=== PATIENT | female | born 1990 | race African-American/Black ===

== ENCOUNTER 2024-06-09 16:14 | Emergency (ER) | payer OTHER, SELFPAY ==
[2024-06-09 16:23] VITALS: BP 131/85; PULSE 72; RESP 14; TEMP 36.8; O2SAT 100; BMI 23.7
--- NOTE | 2024-06-09 17:19 | ED_ITS ---
HPI - Allergic Reaction General Chief complaint: Allergic Reaction Stated complaint: allergic reaction Time Seen by Provider: 06/09/24 17:14 Source: patient Mode of arrival: ambulatory Limitations: no limitations History of Present Illness ED Provider: benedict HPI narrative: Patient's allergic to peanuts somebody was eating peanuts patient was next to the person started having shortness a breath and itching all over the body took Benadryl and then took EpiPen now she feels back to normal Related Data Previous Rx's ?Medication ?Instructions ?Recorded epinephrine 0.3 mg/0.3 mL 0.3 mg (0.3 mL) IM Q10M PRN 06/09/24 injection, auto-injector (EpiPen anaphylaxis #2 ea 2-Neville) Allergies Allergy/AdvReac Type Severity Reaction Status Date / Time Iodinated Contrast Media Allergy Unknown Verified 06/09/24 16:24 [Contrast Dye] peanut Allergy Anaphylaxis Verified 06/09/24 16:24 rizatriptan [From Maxalt] Allergy Unknown Verified 06/09/24 16:24 Review of Systems Review of Systems: Yes all other systems are reviewed and are negative [facility] Social History Social History Advance Directives: No Advance Directives Information Provided: No Do you have a plan to hurt others: No Plan Physical Exam ED Vital Signs: Vital Signs - 24 hr 06/09/24 16:23 Temperature 98.3 F Pulse Rate 72 Respiratory Rate 14 Blood Pressure 131/85 Pulse Oximetry 100 Oxygen Delivery Method Room Air BMI result Body Mass Index 23.7 Appearance: Alert. Oriented X3. No acute distress. Eyes: PERRLA, No Nystagmus ENT: Pharynx normal. Oral Mucosa moist Neck: Normal inspection. Neck supple. CVS: Normal heart rate and rhythm. Pulses normal. Respiratory: No respiratory distress. Equal air entry bilateral, no wheezing/rales/rhonchi Abdomen: Soft and nontender. Bowel sounds are present, no mass palpable, no CVA tenderness Skin: Skin warm and dry. Normal skin color. Normal skin turgor. Extremities: No lower extremity edema. No calf tenderness Neuro: Oriented X 3. No motor deficit. No sensory deficit.No cerebellar signs , cranial nerves II-XII intact Medical Decision Making Medical Decision Making MDM Narrative: Patient is back to normal after EpiPen 10 mg of Decadron was given po in the ER prescribed EpiPen Discharge Plan Discharge Clinical Impression: Anaphylaxis Patient Disposition: Home, Self-Care Instructions: Peanut Allergy (ED) Additional Instructions: Care and cautions as advised Use EpiPen as advised Prescriptions: New epinephrine [EpiPen 2-Neville] 0.3 mg/0.3 mL auto-injector 0.3 mg IM Q10M PRN (Reason: anaphylaxis) Qty: 2 0RF Rx Instructions: for 2 doses Print Language: Kittitian
[2024-06-09] MEDS: dexAMETHasone 2 MG TABLET 10 MG PO (17:59)
[2024-06-09 18:18] VITALS: BP 131/85; PULSE 72; RESP 14; TEMP 36.8; O2SAT 100
== END 2024-06-09 18:18 | disposition home or self-care (01) ==
PROVIDERS: Emergency Provider Internal Medicine
DX: T78.01XA Anaphylactic reaction due to peanuts, initial encounter (principal); Y99.9 Unspecified external cause status
CPT/HCPCS: 99283; 99284; J8540

== ENCOUNTER 2024-08-15 02:30 | Emergency (ER) | payer OTHER, SELFPAY ==
--- NOTE | ~2024-08-15 | CT_ITS ---
CLINICAL HISTORY: trauma, head inj, LOC, headache CT head without contrast Comparison: None Findings: No intra-axial mass, midline shift, hydrocephalus, or acute hemorrhage. No significant atrophy-like change or white matter disease. The visualized paranasal sinuses and mastoid air cells are normal. The orbits are within normal limits. No skull fracture. IMPRESSION: 1. No acute intracranial findings. This document has been electronically signed by: Lili Wang MD on 08/15/2024 05:15:50
[2024-08-15 02:39] VITALS: BP 110/74; BP 117/67; PULSE 72; PULSE 83; RESP 12; TEMP 36.8; O2SAT 96; O2SAT 97; BMI 23.2
--- NOTE | 2024-08-15 02:41 | ECG_ITS ---
Test Reason : SYNCOPE Blood Pressure : */* mmHG Vent. Rate : 64 BPM Atrial Rate : 64 BPM P-R Int : 168 ms QRS Dur : 70 ms QT Int : 406 ms P-R-T Axes : 56 78 33 degrees QTcB Int : 418 ms Normal sinus rhythm Nonspecific T wave abnormality Abnormal ECG No previous ECGs available Referred By: Generic ED Physician Electronically Signed By: LOVE PÉREZ
[2024-08-15 03:03] LABS: MANUAL DIFF FLAG NO
[2024-08-15 03:04] LABS: Basophils Absolute Auto 0.1 X10*3/uL (0.0-0.2); Basophils Percent Auto 1.2 % (0-2); Eosinophils Absolute Auto 0.2 X10*3/uL (0.0-0.4); Eosinophils Percent Auto 3.6 % (0-4); Hematocrit 36.2 % (37.0-47.0); Hemoglobin 11.9 g/dl (12.0-16.0); Imm Gran Abs Auto 0.01 X10*3/uL (0.00-0.03); Imm Gran Pct Auto 0.2 % (0.0-0.4); Lymphocytes Percent Auto 51.4 % (20-40); Mean Corpuscular HGB Conc 32.9 g/dl (31.0-35.0); Mean Corpuscular Hemoglobin 28.1 pg (27.0-33.0); Mean Corpuscular Volume 85.6 fL (80.0-98.0); Mean Platelet Volume 10.7 fL (9.4-12.3); Monocytes Absolute Auto 0.5 X10*3/uL (0.1-1.2); Monocytes Percent Auto 8.3 % (2-11); Neutrophils Percent Auto 35.3 % (45-73); Platelet Count 222 X10*3/uL (160-400); Red Blood Count 4.23 X10*6/uL (4.20-5.50); Red Cell Distribution Width 13.2 % (11.0-16.0); White Blood Count 5.8 X10*3/uL (4.8-10.8)
[2024-08-15 03:24] LABS: Alanine Aminotransferase 16 U/L (0-31); Albumin Level 4.2 g/dL (3.5-5.0); Anion Gap 9 (12-20); Aspartate Amino Transferase 19 U/L (5-31); Bilirubin Total 0.3 mg/dL (0.0-1.0); Blood Urea Nitrogen 8 mg/dL (9-16); Calcium 9.3 mg/dL (8.4-10.2); Carbon Dioxide 26 mmol/L (22-29); Chloride 110 mmol/L (96-108); Creatinine Clr Calc Pharmacy 102.9; Estimated Glomerular Filt Rate > 60; Glucose Random 75 mg/dL (60-115); Potassium 3.4 mmol/L (3.3-5.1); Sodium 142 mmol/L (135-145); Total Protein 7.2 g/dL (6.5-8.0)
[2024-08-15 03:27] VITALS: O2SAT 97
[2024-08-15 03:44] LABS: Influenza A PCR NEGATIVE (Negative); Influenza B PCR NEGATIVE (Negative); Resp Syncy Virus RNA Qual PCR NEGATIVE (Negative); SARS COV2 PCR INHOUSE NEGATIVE (Negative)
--- NOTE | 2024-08-15 03:45 | ED.GENADULT ---
HPI - General Adult General Chief complaint: Syncope Stated complaint: found unresponsive by family, unkn cause, KEENAN 03/27 Time Seen by Provider: 08/15/24 03:45 History of Present Illness ED Provider: Neel LARA narrative: The patient is a 34-year-old woman who was at home with her mother jannet. She had eaten some foods and she had smoked some marijuana and watched a movie with her mother. After the movie the mother went to bed. The patient went to the kitchen. The patient remembers going to the refrigerator to open the door. She does not remember what happened after that. The mother states that she heard a loud bang consistent with a person having fallen. She went to the kitchen and saw the patient on the floor lying supine. The mother believes that the patient passed out and fell backwards and struck the floor making a loud noise. The mother says that it took awhile for the patient to come to. The mother called an ambulance and the patient was brought to the hospital. The patient is complaining of a headache. No neck pain. No numbness or tingling, weakness or burning in her extremities. Related Data Previous Rx's ?Medication ?Instructions ?Recorded epinephrine 0.3 mg/0.3 mL 0.3 mg (0.3 mL) IM Q10M PRN 06/09/24 injection, auto-injector (EpiPen anaphylaxis #2 ea 2-Neville) ibuprofen 400 mg tablet 400 mg PO Q6H PRN pain #14 tabs 08/15/24 Allergies Allergy/AdvReac Type Severity Reaction Status Date / Time Iodinated Contrast Media Allergy Unknown Verified 08/15/24 02:41 [Contrast Dye] peanut Allergy Anaphylaxis Verified 08/15/24 02:41 rizatriptan [From Maxalt] Allergy Unknown Verified 08/15/24 02:41 Review of Systems Review of Systems: Yes all other systems are reviewed and are negative [facility] Social History Social History Use of substances other than those prescribed or required for medical reasons: Yes Substance Use Type: Marijuana Advance Directives: No Advance Directives Information Provided: Yes Do you have a plan to hurt others: No Plan Patient : No Physical Exam ED Vital Signs: Vital Signs - 24 hr 08/15/24 02:39 08/15/24 03:27 08/15/24 05:19 Temperature 98.3 F Pulse Rate 72 59 Respiratory Rate 12 20 Blood Pressure 117/67 Pulse Oximetry 97 97 Oxygen Delivery Method Room Air Room Air BMI result Body Mass Index 23.2 Const Other: The patient is awake and alert. Mental status is normal. She looks somewhat fatigued but not in distress. HENMT Other: Some tenderness to the occipital scalp. Face is symmetrical. No raccoon eyes. No manriquez sign. Mucous membranes are moist. Eyes General: appearance normal, both eyes and all related structures Alignment and Position: alignment normal Conjunctivae: conjunctivae normal Pupils: Equal, round and reactive pupils present EOM: EOMs intact bilaterally Neck Other: No posterior midline C-spine tenderness. Good range of motion of the neck without pain. C-spine is clinically clear. Neck is otherwise unremarkable. Resp Effort & Inspection: normal respiratory effort Auscultation: clear to auscultation bilaterally Cardio Rate: regular rate Rhythm: regular rhythm Heart sounds: S1 normal heart sound present and S2 normal heart sound present GI Other: Abdomen is soft and nontender. Skin Other: Skin is dry and unremarkable Neuro Other: the patient is awake and alert with a normal mental status. Cranial nerves are intact. She moves her extremities with normal strength and sensation. She seems neurologically intact. Cranial nerves: Yes Equal, round and reactive pupils present Extrem Other: No injuries to the extremities. No peripheral edema. No calf swelling or tenderness. Medications Administered Discontinued Medications Generic Name Dose Route Start Last Admin Trade Name Freq PRN Reason Stop Dose Admin Sodium Chloride 1,000 mls @ 999 mls/hr 08/15/24 04:00 08/15/24 06:29 Ns IV 08/15/24 05:00 Infused .Q1H1M JOSE Infusion Acetaminophen 1,000 mg in 100 mls @ 400 mls/hr 08/15/24 04:42 08/15/24 05:04 Ofirmev IV 08/15/24 04:56 Infused ONCE ONE Infusion Ketorolac Tromethamine 10 mg 08/15/24 05:18 08/15/24 05:36 Ketorolac Tromethamine 15 Mg/Ml Vial IVPUSH 08/15/24 05:19 10 mg ONCE ONE Administration Medical Decision Making Medical Decision Making MDM Narrative: The patient is a 34-year-old female who was brought to the hospital after experiencing what sounds like a syncopal episode after using marijuana. She seems to have fallen backwards and struck her head. Her mother heard the fall. The fall was otherwise unwitnessed. The mother describes the patient has been difficult to arouse initially after the fall. Here in the emergency room the patient is complaining of a headache. Her C-spine seems clinically clear. Head CT is negative. EKG unremarkable. Other labs unremarkable. I suspect that the patient likely had a syncopal episode related to marijuana use. She does not seem to have sustained any significant injuries. I doubt there is any other more ominous explanation for her syncope. Labs are unremarkable. She is not . The patient was observed. She looks well. I think she may be discharged. Lab Data 08/15/24 02:54 08/15/24 02:54 Labs: Lab Results 08/15/24 08/15/24 Range/Units 02:54 03:02 WBC 5.8 (4.8-10.8) X10*3/uL RBC 4.23 (4.20-5.50) X10*6/uL Hgb 11.9 L (12.0-16.0) g/dl Hct 36.2 L (37.0-47.0) % MCV 85.6 (80.0-98.0) fL MCH 28.1 (27.0-33.0) pg MCHC 32.9 (31.0-35.0) g/dl RDW 13.2 (11.0-16.0) % Plt Count 222 (160-400) X10*3/uL MPV 10.7 (9.4-12.3) fL Immature Gran % (Auto) 0.2 (0.0-0.4) % Neut % (Auto) 35.3 L (45-73) % Lymph % (Auto) 51.4 H (20-40) % Davie % (Auto) 8.3 (2-11) % Eos % (Auto) 3.6 (0-4) % Baso % (Auto) 1.2 (0-2) % Lymph # (Auto) 3.0 (1.2-4.9) X10*3/uL Davie # (Auto) 0.5 (0.1-1.2) X10*3/uL Eos # (Auto) 0.2 (0.0-0.4) X10*3/uL Baso # (Auto) 0.1 (0.0-0.2) X10*3/uL Abs Immat Gran (auto) 0.01 (0.00-0.03) X10*3/uL Absolute Neuts (auto) 2.0 (2.0-8.3) x10*3/uL Absolute Nucleated RBC 0.000 (0.0-0.012) X10*3/uL Nucleated RBC % (auto) 0.0 (0.0-0.2) /100WBC Sodium 142 (135-145) mmol/L Potassium 3.4 (3.3-5.1) mmol/L Chloride 110 H (96-108) mmol/L Carbon Dioxide 26 (22-29) mmol/L Anion Gap 9 L (12-20) BUN 8 L (9-16) mg/dL Creatinine 0.70 (0.5-1.4) mg/dL Estim Creat Clear Calc 102.9 Estimated GFR > 60 Random Glucose 75 (60-115) mg/dL Calcium 9.3 (8.4-10.2) mg/dL Total Bilirubin 0.3 (0.0-1.0) mg/dL AST 19 (5-31) U/L ALT 16 (0-31) U/L Alkaline Phosphatase 61 (39-117) U/L Total Protein 7.2 (6.5-8.0) g/dL Albumin 4.2 (3.5-5.0) g/dL Beta HCG, Quant < 2 mIU/mL Influenza Type A (PCR) NEGATIVE (Negative) Influenza Type B (PCR) NEGATIVE (Negative) RSV RNA Qual (PCR) NEGATIVE (Negative) SARS-CoV-2 RNA (RT-PCR) NEGATIVE (Negative) Independent Interpretation I performed an independent interpretation of an: EKG Interpretation: EKG shows normal sinus rhythm at 64 beats per minute. No definite acute ischemic changes. Intervals unremarkable. Discharge Plan Discharge Clinical Impression: Syncope, Head injury, Headache Patient Disposition: Home, Self-Care Additional Instructions: Your testing today is reassuring. There is no sign of any dangerous head injury. Please plan on resting today and taking it easy. You may use ibuprofen and acetaminophen as needed for discomfort. Drink lot of fluids. Be careful with cannabis in the future. Please work on getting a primary care doctor. You have been given the contact information for a [place] primary care office which I think is taking new patients. Return to the emergency room if significantly worse. Prescriptions: New ibuprofen 400 mg tablet 400 mg PO Q6H PRN (Reason: pain) Qty: 14 0RF No Action epinephrine [EpiPen 2-Neville] 0.3 mg/0.3 mL auto-injector 0.3 mg IM Q10M PRN (Reason: anaphylaxis) Qty: 2 0RF Rx Instructions: for 2 doses Referrals: [facility] [Provider Group] (Needs PCP) Interventions: ED Discharge Assessment Last Done: 08/15/24 06:33 Discharge Date/Time: 08/15/24 06:58 Print Language: Kosovan
[2024-08-15 04:09] LABS: Alkaline Phosphatase 61 U/L (39-117)
[2024-08-15] MEDS: 0.9 % Sodium Chloride 1,000 ML 999 ML IV (04:32)
[2024-08-15] MEDS: Acetaminophen 1,000 MG/100 ML PIGGYBACK 400 MG IV (04:49)
[2024-08-15 05:19] VITALS: PULSE 59; RESP 20
[2024-08-15] MEDS: Ketorolac Tromethamine 15 MG/ML VIAL 10 MG IVPUSH (05:36)
[2024-08-15 06:25] LABS: HCG Quantitative < 2 mIU/mL
[2024-08-15 06:33] VITALS: BP 116/69; PULSE 73; RESP 16; TEMP 36.5; O2SAT 97
== END 2024-08-15 06:58 | disposition home or self-care (01) ==
PROVIDERS: Emergency Provider Emergency Medicine; PCP Internal Medicine
DX: S09.90XA Unspecified injury of head, initial encounter (principal); R55 Syncope and collapse; R51.9 Headache, unspecified; R11.0 Nausea; R94.31 Abnormal electrocardiogram [ECG] [EKG]; Y93.9 Activity, unspecified; W19.XXXA Unspecified fall, initial encounter; Y92.9 Unspecified place or not applicable; Y99.8 Other external cause status; Z03.818 Encounter for observation for suspected exposure to other biological agents ruled out; Z79.899 Other long term (current) drug therapy
CPT/HCPCS: 0241U; 70450; 80053; 84702; 85025; 93005; 96361; 96374; 96375; 99285; J0131; J1885

== ENCOUNTER → 2024-08-15 02:41 | Outpatient (BNV) | payer OTHER, SELFPAY | PROVIDERS: Emergency Provider Emergency Medicine; PCP Internal Medicine; Visit Provider Internal Medicine | DX: R94.31 Abnormal electrocardiogram [ECG] [EKG] (principal) | CPT/HCPCS: 93010 ==

== ENCOUNTER → 2024-08-15 03:55 | Outpatient (BNV) | payer OTHER, SELFPAY | PROVIDERS: Emergency Provider Emergency Medicine; PCP Internal Medicine; Visit Provider Radiology Diagnostic Radiology | DX: S09.90XA Unspecified injury of head, initial encounter (principal) | CPT/HCPCS: 70450 ==

== ENCOUNTER → 2024-10-01 10:14 | Outpatient (BNVA) | payer OTHER, SELFPAY | DX: M79.7 Fibromyalgia (principal); R55 Syncope and collapse; J45.909 Unspecified asthma, uncomplicated | CPT/HCPCS: 96127; 99202 ==

== ENCOUNTER 2024-10-01 10:17 | Outpatient (AMB) | payer OTHER, SELFPAY ==
--- NOTE | 2024-10-01 10:21 | MHC.PC.OV ---
Vital Signs 10/01/24 10:23 Height 5 ft 6.14 in Weight 125 lb 4 oz BMI 20.1 BP 110/62 Blood Pressure Location Lt brachial Position Sitting Pulse 92 Pulse Source Pulse Oximeter Temp 97.5 F Temp Source Temporal Artery Scan Pulse Oximetry (%) 99 Oxygen Delivery Method Room Air Intake Visit Reasons: Establish Care Intake Note: Patient is a new patient here to establish care for Fibromyalgia, Asthma, Hx high cholesterol, Migraines. Transferring care from unknown. Medical records Have been requested and have not received. Interior Design Assistant Required: No Core Shaper Top: Not Required per policy Accompanied by: Self / Same As Patient Allergies tree nut Allergy (Intermediate, Verified 10/01/24 10:32) Hives Iodinated Contrast Media [Contrast Dye] Allergy (Verified 10/01/24 10:32) Unknown peanut Allergy (Verified 10/01/24 10:32) Anaphylaxis rizatriptan [From Maxalt] Allergy (Verified 10/01/24 10:32) Unknown Tobacco use date assessed: 10/01/24 Dental Screening Dental Screen Date: 10/01/24 Did you have a dental visit in the last 12 months?: Yes Did you have a dental problem in the last 6 months where you did not have access to dental care?: No Was dental information given to patient?: Patient has dentist HPI Establish Care HPI Details The patient is a 34 y/o female presenting to establish care Previous PCP: Oleg Wright, in [place] Last visit:a while Last PE: a while Specialist: no OBGYN: need a referral Past medical history: Migraine, Asthma (young) Fibromyalgia, High cholesterol (young) Medications: epi pen for allergies Family HX: Mother-heart disease, htn, Father-DM, paternal grandmother DM Problem: Reports passing out and was unconscious August 15, 2024 Reports that she regain consciousness before the EMS arrived The reports that nothing was found on CTH The reports that she smokes marijuana and she tried a different brand She felt weird after smoking it and she did not know what happen after Apparently the patient had a syncopal episode Medications that patient take otc :Alleve 220 mg at times and lidocane patch, pain behind right shoulder PFSH Medical History (Updated 10/01/24 @ 11:34 by OSWALDO Peres) High cholesterol Fibromyalgia History of LEEP (loop electrosurgical excision procedure) of cervix complicating Surgical History History of salpingectomy Family History Mother Heart disease Father Diabetes Paternal Grandmother Diabetes Social History Housing: Other (live with family) Alcohol intake: never Patient Tobacco Use Status: Never used Tobacco e-Cigarette/Vaping Use: Former Use Second Hand Smoke Exposure: No Substance Use Type: Marijuana service: No 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 1. Little interest or pleasure in doing things: not at all 2. Feeling down, depressed, or hopeless: not at all 3. Trouble falling or staying asleep, or sleeping too much: not at all 4. Feeling tired or having little energy: not at all 5. Poor appetite or overeating: not at all 6. Feeling bad about yourself - or that you are a failure or have let yourself or your family down: not at all 7. Trouble concentrating on things, such as reading the newspaper or watching television: not at all 8. Moving or speaking so slowly that other people could have noticed. Or the opposite - being so fidgety or restless that you have been moving around a lot more than usual: not at all 9. Thoughts that you would be better off or of hurting yourself in some way: not at all Total score: 0 Depression Screening Interpretation: Negative Depression Screening Done: Yes 65953 - PHQ-9 Billing: Yes Source: Developed by Drs. Jason Randolph, Ana Castillo, Fredy De Luna and colleagues, with an educational raymond from [employer]. Thrive Questionnaire Date Thrive assessed: 10/01/24 I am a: Patient What is your living situation today?: I have a steady place to live Within the past 12 months, did the food you bought not last and you didn't have the money to get more?: I choose not to answer this question Within the past 12 months, did you worry whether your food would run out before you got money to buy more?: I choose not to answer this question Do you have trouble paying for medicines?: No Do you have trouble getting transportation to medical appointments?: No Do you have trouble paying your heating and electricity bill?: I choose not to answer this question Do you have trouble taking care of your child, family member or friend?: I choose not to answer this question Do you have trouble with day-to-day activities such as bathing, preparing meals, shopping, managing finances, etc.?: No Are you currently unemployed and looking for a job?: No Are you interested in more education?: I choose not to answer this question Please select the resources that you would like help with: None Currently or been in a relationship where the following occur: I choose not to answer THRIVE Score: 0 AUDIT C Alcohol Use Questionnaire (AUDIT-C) 1. How often do you have a drink containing alcohol?: Monthly or less 2. How many drinks containing alcohol do you have on a typical day when you are drinking?: 1 or 2 3. How often do you have six or more drinks on one occasion?: Never Total Score: 1 LISA-7 AMB Questionnaire LISA-7 Date LISA - 7 assessed: 10/01/24 Feeling nervous, anxious, or on edge: 0 = Not at all Not being able to stop or control worryin = Not at all Worrying too much about different things: 0 = Not at all Trouble relaxin = Not at all Being so restless that it is hard to sit still: 0 = Not at all Becoming easily annoyed or irritable: 0 = Not at all Feeling afraid as if something awful might happen: 0 = Not at all Total LISA-7 score (0-4 normal; 5-9 mild; 10-14 moderate; 15-21 severe): 0 Source: Developed by Drs. Jason Randolph, Ana Castillo, Fredy De Luna and colleagues, with an educational raymond from [employer]. LISA-7 Assessment Billing LISA-7 Assessment Tool: LISA-7 Assessment 55240 Review of Systems Const Denies headache(s) Eyes Denies loss of vision ENT Denies vertigo, Denies dizziness, Denies headache(s) and Denies sore throat Card Denies chest pain, Denies leg edema and Denies lightheadedness Resp Denies cough, Denies hemoptysis and Denies wheezing GI Denies abdominal pain, Denies melena, Denies constipation, Denies diarrhea and Denies vomiting Denies urinary frequency, Denies dysuria and Denies urinary urgency Musc Reports myalgias (pain behind shoulders, worse on the right side (intermittently)), Denies arthralgias, Denies joint swelling, Denies numbness and Denies tingling Neuro Denies Abnormal speech present, Denies behavioral changes, Denies vertigo, Denies dizziness, Denies headache(s), Denies loss of vision, Denies memory loss, Denies numbness and Denies tingling Psych Denies anxiety, Denies behavioral changes, Denies depression, Denies memory loss and Denies panic attacks Jaren/Lymph Denies easy bleeding and Denies easy bruising Aller/Immun Denies wheezing Physical exam (Primary Care) Vital Signs: Last Vital Signs Temp 97.5 F 10/01/24 10:23 Pulse 92 10/01/24 10:23 BP 110/62 10/01/24 10:23 Pulse Ox 99 10/01/24 10:23 Oxygen Delivery Method Room Air 10/01/24 10:23 BMI result Body Mass Index 20.1 Tobacco/Smoking Status: Tobacco use Status Tobacco use date assessed 10/01/24 10/01/24 10:36 Patient Tobacco Use Status Never used Tobacco 10/01/24 10:36 e-Cigarette/Vaping Use Former Use 10/01/24 10:36 PHQ-9: PHQ-9 Score PHQ-9: Total score 0 10/01/24 10:36 Depression Screening Interpretation: Negative Thrive Assessment: Date of Thrive Assessment Date Thrive assessed 10/01/24 10/01/24 10:36 Currently or been in a relationship where the following occur: I choose not to answer Const General: healthy appearing, no acute distress, alert and awake Nutritional Appearance: well nourished Orientation/consciousness: oriented to person, oriented to place and oriented to time HENMT Ears: TM's normal bilaterally General nose exam: Normal nasal mucous membranes and turbinates present Eyes Conjunctivae: conjunctivae normal Sclerae: sclerae normal Pupils: Equal, round and reactive pupils present Neck Neck: Yes no lymphadenopathy and Yes no JVD Thyroid: Thyroid normal Carotids: no bruits Resp Effort & Inspection: normal respiratory effort and not tachypneic Auscultation: no crackles, no rales, no rhonchi and no wheezes Cardio Rate: regular rate Rhythm: regular rhythm Heart sounds: no murmurs and normal S1 and S2 GI Palpation (GI): Soft to palpation, nontender, no hepatomegaly and no splenomegaly Auscultation: normal bowel sounds General: Yes no CVA tenderness Back/Spine/Pelvis Back: no CVA tenderness Skin General skin exam: no rashes or lesions noted and dry skin Neuro General: oriented to person, oriented to place and oriented to time Cranial nerves: Yes Equal, round and reactive pupils present Speech: No Abnormal speech present Gait exam (Neuro): Normal gait present Motor exam (neuro): no tremor noted Extrem Right upper extremity: full ROM Left upper extremity: full ROM Right lower extremity: full ROM; no edema Left lower extremity: full ROM; no edema Psych Mental Status: mental status grossly normal Speech and movement: Normal speech and movement present Affect: normal affect Attitude: cooperative Thought process: Normal thought process present Coding Level of Care Code New Pt Level 3 (61965) Diagnoses Fibromyalgia M79.7 Syncope, unspecified syncope type R55 Syncope type: unspecified Asthma, unspecified asthma severity, unspecified whether complicated, unspecified whether persistent J45.909 Asthma severity: unspecified severity Asthma persistence: unspecified Asthma complication type: unspecified Additional Codes PHQ-9 - 41937 - PHQ-9 Billing: Yes ([id number]) LISA-7 Assessment Billing - LISA-7 Assessment Tool: LISA-7 Assessment 41889 ([id number]) Time Spent (min) 34 Assessment & Plan Assessment & Plan (1) Fibromyalgia: Code(s): M79.7 - Fibromyalgia Category: Medical Plan: The patient reports that this has been stable. Reports that she gets pain intermittently behind her shoulders>on the right side. She uses alleve and lidocaine patch OTC as needed (2) Syncope: Code(s): R55 - Syncope and collapse Category: Medical Qualifiers: Syncope type: unspecified Qualified Code(s): R55 - Syncope and collapse Plan: Episode of a passing out at home after smoking a new brand of marijuana. Reports that she has not smoked since and this has not happen again. Encouraged fluids hydration and frequent meals (3) Asthma: Code(s): J45.909 - Unspecified asthma, uncomplicated Category: Medical Qualifiers: Asthma severity: unspecified severity Asthma persistence: unspecified Asthma complication type: unspecified Qualified Code(s): J45.909 - Unspecified asthma, uncomplicated Plan: The patient denies any exacerbation since her 20s. Explained to patient that she should have a rescue inhaler in case the developed asthma symptoms. Albuterol sulfate 90 mcg/actuation 2 puffs inh Q4-6H PRN ordered Avoid triggers like smoking Orders: Orders Complete Blood Count Auto Diff Today Z00.00 - Encounter for general adult medical examination without abnormal findings Lipid Panel Today Z00.00 - Encounter for general adult medical examination without abnormal findings Vitamin D 25-OH Total Today Z00.00 - Encounter for general adult medical examination without abnormal findings Comprehensive Patterson. Panel Fast Today Z00.00 - Encounter for general adult medical examination without abnormal findings TSH reflex Free T4 Today Z00.00 - Encounter for general adult medical examination without abnormal findings UA CC w/rflx Micro + Cult Today Z00.00 - Encounter for general adult medical examination without abnormal findings Glucose Fasting Today Z00.00 - Encounter for general adult medical examination without abnormal findings Referrals [employer] Referral Z00.00 - Encounter for general adult medical examination without abnormal findings Medications: New albuterol sulfate 90 mcg/actuation 2 puffs inhalation Q4-6H PRN 6.7 grams 3RF shortness of breath or wheezing J45.909 - Unspecified asthma, uncomplicated Discontinued ibuprofen Discontinued Reason: Patient Completed Course 400 mg PO Q6H PRN 14 tabs 0RF pain
[2024-10-01 10:23] VITALS: BP 110/62; PULSE 92; TEMP 36.4; O2SAT 99; BMI 20.1
== END 2024-10-01 11:39 | disposition home or self-care (01) ==
DX: M79.7 Fibromyalgia (principal); R55 Syncope and collapse; J45.909 Unspecified asthma, uncomplicated

== ENCOUNTER 2024-10-08 12:14 | Emergency (ER) | payer OTHER, SELFPAY ==
[2024-10-08 12:16] VITALS: BP 116/77; PULSE 110; RESP 22; TEMP 35.9; O2SAT 100; BMI 20.5
[2024-10-08] MEDS: methylPREDNISolone Sod Succ 125 MG/2 ML VIAL IVPUSH (12:26)
[2024-10-08] MEDS: diphenhydrAMINE HCL 50 MG/ML VIAL IVPUSH (12:26)
[2024-10-08] MEDS: Famotidine/PF 20 MG/2 ML VIAL IVPUSH (12:26)
[2024-10-08] MEDS: 0.9 % Sodium Chloride 1,000 ML 999 ML IV (12:26)
[2024-10-08 12:37] VITALS: BP 129/79; PULSE 101; RESP 20; O2SAT 96
[2024-10-08 13:16] VITALS: BP 109/68; PULSE 84; RESP 21; O2SAT 100
[2024-10-08 14:07] VITALS: BP 117/76; PULSE 82; RESP 23; O2SAT 100
--- NOTE | 2024-10-08 15:24 | ED_ITS ---
HPI - General Adult General Chief complaint: Allergic Reaction Stated complaint: allergic reaction diff breathing used epi pen Time Seen by Provider: 10/08/24 12:19 Related Data Previous Rx's ?Medication ?Instructions ?Recorded epinephrine 0.3 mg/0.3 mL 0.3 mg (0.3 mL) IM Q10M PRN 06/09/24 injection, auto-injector (EpiPen anaphylaxis #2 ea 2-[place]) albuterol sulfate 90 mcg/actuation 2 puff inhalation Q4-6H PRN 10/01/24 aerosol inhaler shortness of breath or wheezing #6.7 grams epinephrine 0.3 mg/0.3 mL 0.3 mg (0.3 mL) IM Q10M PRN 10/08/24 injection, auto-injector (EpiPen anaphylaxis #2 ea 2-[place]) methylprednisolone 4 mg tablets in 4 mg PO QAM #21 ea 10/08/24 a dose pack (Medrol ([place])) Allergies Allergy/AdvReac Type Severity Reaction Status Date / Time tree nut Allergy Intermediate Hives Verified 10/08/24 12:18 Iodinated Contrast Media Allergy Unknown Verified 10/08/24 12:18 [Contrast Dye] peanut Allergy Anaphylaxis Verified 10/08/24 12:18 rizatriptan [From Maxalt] Allergy Unknown Verified 10/08/24 12:18 [facility] Past Medical History Medical History (Updated 10/08/24 @ 15:25 by DA Cruz) High cholesterol Fibromyalgia History of LEEP (loop electrosurgical excision procedure) of cervix complicating Surgical History History of salpingectomy Family History Family History Mother Heart disease Father Diabetes Paternal Grandmother Diabetes Social History Social History Housing: Other (live with family) Alcohol intake: never Patient Tobacco Use Status: Never used Tobacco e-Cigarette/Vaping Use: Former Use Second Hand Smoke Exposure: No Substance Use Type: Marijuana Advance Directives: Yes Advance Directives Information Provided: Yes Advance Directives on File: No Do you have a plan to hurt others: No Plan service: No 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) Cognitive needs: No Hearing needs: No Vision needs: Yes (GLasses) Physical Exam ED Vital Signs: Vital Signs - 24 hr 10/08/24 12:16 10/08/24 12:37 10/08/24 13:16 Temperature 96.6 F L Pulse Rate 110 H 101 H 84 Respiratory Rate 22 H 20 21 H Blood Pressure 116/77 129/79 109/68 Pulse Oximetry 100 96 100 Oxygen Delivery Method Room Air Room Air Room Air 10/08/24 14:07 Temperature Pulse Rate 82 Respiratory Rate 23 H Blood Pressure 117/76 Pulse Oximetry 100 Oxygen Delivery Method Room Air BMI result Body Mass Index 20.5 Medications Administered Discontinued Medications Generic Name Dose Route Start Last Admin Trade Name Freq PRN Reason Stop Dose Admin Diphenhydramine HCl 50 mg 10/08/24 12:19 10/08/24 12:26 Diphenhydramine Hcl 50 Mg/Ml Vial IVPUSH 10/08/24 12:20 50 mg ONCE ONE Administration Famotidine 20 mg 10/08/24 12:20 10/08/24 12:26 Famotidine/Pf 20 Mg/2 Ml Vial IVPUSH 10/08/24 12:21 20 mg ONCE ONE Administration Sodium Chloride 1,000 mls @ 999 mls/hr 10/08/24 12:30 10/08/24 13:27 Ns IV 10/08/24 13:30 Infused .Q1H1M JOSE Infusion Methylprednisolone Sodium Succinate 125 mg 10/08/24 12:19 10/08/24 12:26 Methylprednisolone Sod Succ 125 Mg/2 Ml Vial IVPUSH 10/08/24 12:20 125 mg ONCE ONE Administration Discharge Plan Discharge Clinical Impression: Allergic reaction Patient Disposition: Home, Self-Care Instructions: General Allergic Reaction (ED) Additional Instructions: You were monitored in the emergency department for progression of your reaction. If you develop similar symptoms, administer your EpiPen to yourself, then seek emergent medical attention, just as you did today. Follow up with primary care as needed. Use the steroid taper as directed. You do not require any additional medication until tomorrow. Prescriptions: New methylprednisolone [Medrol ([place])] 4 mg tablets,dose pack 4 mg PO QAM Qty: 21 0RF Rx Instructions: Take the steroid taper per package instructions. epinephrine [EpiPen 2-[place]] 0.3 mg/0.3 mL auto-injector 0.3 mg IM Q10M PRN (Reason: anaphylaxis) Qty: 2 0RF Rx Instructions: not to exceed 6 doses per episode No Action epinephrine [EpiPen 2-[place]] 0.3 mg/0.3 mL auto-injector 0.3 mg IM Q10M PRN (Reason: anaphylaxis) Qty: 2 0RF Rx Instructions: for 2 doses albuterol sulfate 90 mcg/actuation HFA aerosol inhaler 2 puff inhalation Q4-6H PRN (Reason: shortness of breath or wheezing) Qty: 6.7 3RF Stand Alone Forms: Work/School Release Print Language: Swiss
[2024-10-08 15:30] VITALS: BP 107/70; PULSE 82; RESP 20; TEMP 36.6; O2SAT 99
== END 2024-10-08 15:37 | disposition home or self-care (01) ==
PROVIDERS: Emergency Provider Emergency Medicine Emergency Medical Services
DX: R06.02 Shortness of breath (principal); T78.1XXA Other adverse food reactions, not elsewhere classified, initial encounter; T78.49XA Other allergy, initial encounter; X58.XXXA Exposure to other specified factors, initial encounter
CPT/HCPCS: 96361; 96374; 96375; 99283; 99284; J1200; J2919

== ENCOUNTER 2024-11-29 15:56 | Outpatient (AMB) | payer OTHER, SELFPAY ==
[2024-11-29 16:15] VITALS: BP 108/64; PULSE 86; RESP 16; TEMP 37.4; O2SAT 97; BMI 21.2
--- NOTE | 2024-11-29 16:15 | A.OFFPC_ITS ---
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: No Accompanied by: Self / Same As Patient Allergies tree nut Allergy (Intermediate, Verified 11/29/24 16:37) Hives Iodinated Contrast Media [Contrast Dye] Allergy (Verified 11/29/24 16:37) Unknown peanut Allergy (Verified 11/29/24 16:37) Anaphylaxis rizatriptan [From Maxalt] Allergy (Verified 11/29/24 16:37) Unknown Medication List - Last Reconciled 11/29/24 by OSWALDO Peres albuterol sulfate 90 mcg/actuation 2 puffs inhalation Q4-6H PRN cetirizine 10 mg PO DAILY epinephrine (EpiPen 2-[place]) 0.3 mg (0.3 mL) IM Q10M PRN fluticasone propionate 50 mcg/actuation intranasal valacyclovir 500 mg PO DAILY Tobacco use date assessed: 11/29/24 Dental Screening Dental Screen Date: 11/29/24 Did you have a dental visit in the last 12 months?: Yes Did you have a dental problem in the last 6 months where you did not have access to dental care?: No Was dental information given to patient?: Patient has dentist HPI PE HPI Details Dentist: up to date Eye: up to date Snellen: Right: Left: Corrected vision: glasses STI screening: Colonoscopy: Pap Smer:up to date PHQ-9: Flu: almost fainted the last time she had it done and she stopped COVID: x2 Tdap:due Diet: regular diet Exercise: not right now Reports passing out and was unconscious August 15, 2024 Reports that she regain consciousness before the EMS arrived The reports that nothing was found on AZH The reports that she smokes marijuana and she tried a different brand She felt weird after smoking it and she did not know what happen after Apparently the patient had a syncopal episode Medications that patient take otc :Alleve 220 mg at times and lidocane patch, pain behind right shoulder will do an xry of the right shoulder- ongoing shoulder pain. Will order xray pain with adduction and external rotation [facility] Medical History (Updated 10/09/24 @ 00:01 by Lorena Soni) High cholesterol Fibromyalgia History of LEEP (loop electrosurgical excision procedure) of cervix complicating Surgical History History of salpingectomy Family History Mother Heart disease Father Diabetes Paternal Grandmother Diabetes Social History (Updated 11/29/24 @ 16:21 by Alisa Rutherford CMA) Household Members: Family Household Members Other:: Brother Housing: Apartment Alcohol intake: never Patient Tobacco Use Status: Never used Tobacco e-Cigarette/Vaping Use: Currently Using (Vape) Second Hand Smoke Exposure: No service: No 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 1. Little interest or pleasure in doing things: not at all 2. Feeling down, depressed, or hopeless: not at all 3. Trouble falling or staying asleep, or sleeping too much: not at all 4. Feeling tired or having little energy: not at all 5. Poor appetite or overeating: not at all 6. Feeling bad about yourself - or that you are a failure or have let yourself or your family down: not at all 7. Trouble concentrating on things, such as reading the newspaper or watching television: not at all 8. Moving or speaking so slowly that other people could have noticed. Or the opposite - being so fidgety or restless that you have been moving around a lot more than usual: not at all 9. Thoughts that you would be better off or of hurting yourself in some way: not at all Total score: 0 Depression Screening Interpretation: Negative Depression Screening Done: Yes 31730 - PHQ-9 Billing: Yes Source: Developed by Drs. Jason Randolph, Fredy Barbake and colleagues, with an educational raymond from [employer]. Thrive Questionnaire Date Thrive assessed: 11/29/24 I am a: Patient What is your living situation today?: I have a steady place to live Within the past 12 months, did the food you bought not last and you didn't have the money to get more?: I choose not to answer this question Within the past 12 months, did you worry whether your food would run out before you got money to buy more?: I choose not to answer this question Do you have trouble paying for medicines?: No Do you have trouble getting transportation to medical appointments?: No Do you have trouble paying your heating and electricity bill?: I choose not to answer this question Do you have trouble taking care of your child, family member or friend?: I choose not to answer this question Do you have trouble with day-to-day activities such as bathing, preparing meals, shopping, managing finances, etc.?: No Are you currently unemployed and looking for a job?: No Are you interested in more education?: I choose not to answer this question Please select the resources that you would like help with: None Currently or been in a relationship where the following occur: I choose not to answer THRIVE Score: 0 AUDIT C Alcohol Use Questionnaire (AUDIT-C) 1. How often do you have a drink containing alcohol?: Never Total Score: 0 Score Reviewed/Action Taken: No LISA-7 AMB Questionnaire LISA-7 Date LISA - 7 assessed: 11/29/24 Feeling nervous, anxious, or on edge: 0 = Not at all Not being able to stop or control worryin = Not at all Worrying too much about different things: 0 = Not at all Trouble relaxin = Not at all Being so restless that it is hard to sit still: 0 = Not at all Becoming easily annoyed or irritable: 0 = Not at all Feeling afraid as if something awful might happen: 0 = Not at all Total LISA-7 score (0-4 normal; 5-9 mild; 10-14 moderate; 15-21 severe): 0 Source: Developed by Drs. Jason Randolph, Fredy Barba and colleagues, with an educational raymond from [employer]. LISA-7 Assessment Billing LISA-7 Assessment Tool: LISA-7 Assessment 94279 Physical exam (Primary Care) Vital Signs: Last Vital Signs Temp 99.3 F 11/29/24 16:15 Pulse 86 11/29/24 16:15 Resp 16 11/29/24 16:15 BP 108/64 11/29/24 16:15 Pulse Ox 97 11/29/24 16:15 Oxygen Delivery Method Room Air 11/29/24 16:15 BMI result Body Mass Index 21.2 Tobacco/Smoking Status: Tobacco use Status Tobacco use date assessed 11/29/24 11/29/24 16:27 Patient Tobacco Use Status Never used Tobacco 11/29/24 16:27 e-Cigarette/Vaping Use Currently Using (Vape) 11/29/24 16:27 PHQ-9: PHQ-9 Score PHQ-9: Total score 0 11/29/24 16:41 Depression Screening Interpretation: Negative Thrive Assessment: Date of Thrive Assessment Date Thrive assessed 11/29/24 11/29/24 16:27 Currently or been in a relationship where the following occur: I choose not to answer Immunizations Boostrix Tdap 2.5 Lf unit-8 mcg-5 Lf/0.5 mL intramuscular syringe Performing Provider: OSWALDO Peres [facility] Administered by: Alisa Rutherford CMA on 11/29/24 17:05 Dose Route Admin Location Dispensed Lot Number Expiration Date NDC Vegetable Farmer 0.5 mL IM Left Deltoid 0.5 mL [id number] 03/13/27 26343-726-87 [facility] VIS Given Date VIS Provided VIS Publication Date 11/29/24 Single Vaccine 24 Eligibility Eligibility Date Funding Source Not [facility] Eligible 11/29/24 Private Coding Additional Codes LISA-7 Assessment Billing - LISA-7 Assessment Tool: LISA-7 Assessment 16320 ([id number]) PHQ-9 - 85479 - PHQ-9 Billing: Yes ([id number]) Assessment & Plan Assessment & Plan Orders: Orders TDaP Immunization Today Z23 - Encounter for immunization Medications: New cetirizine 10 mg PO DAILY 90 tabs 3RF fluticasone propionate 50 mcg/actuation 2 sprays intranasal BID 16 grams 0RF Boostrix Tdap (diphth,pertus(acell),tetanus) 0.5 mL IM ONCE 0.5 mL 0RF NS Z23 - Encounter for immunization
== END 2024-11-29 17:03 | disposition home or self-care (01) ==
LOC: HO.HMCH 15:57
DX: Z23 Encounter for immunization (principal)

== ENCOUNTER → 2024-11-29 15:56 | Outpatient (BNVA) | payer OTHER, SELFPAY | DX: Z00.00 Encounter for general adult medical examination without abnormal findings (principal); J45.909 Unspecified asthma, uncomplicated; M79.7 Fibromyalgia; M25.511 Pain in right shoulder; R55 Syncope and collapse; E78.00 Pure hypercholesterolemia, unspecified; E55.9 Vitamin D deficiency, unspecified; Z23 Encounter for immunization | CPT/HCPCS: 90471; 90715; 99395 ==

== ENCOUNTER 2024-11-30 12:15 | Outpatient (REF) | payer OTHER, SELFPAY ==
[2024-11-30 12:25] LABS: MANUAL DIFF FLAG NO
[2024-11-30 12:39] LABS: Basophils Absolute Auto 0.1 X10*3/uL (0.0-0.2); Eosinophils Absolute Auto 0.1 X10*3/uL (0.0-0.4); Eosinophils Percent Auto 1.4 % (0-4); Hematocrit 37.9 % (37.0-47.0); Hemoglobin 12.4 g/dl (12.0-16.0); Imm Gran Abs Auto 0.01 X10*3/uL (0.00-0.03); Imm Gran Pct Auto 0.2 % (0.0-0.4); Lymphocytes Absolute Auto 1.5 X10*3/uL (1.2-4.9); Lymphocytes Percent Auto 29.3 % (20-40); Mean Corpuscular HGB Conc 32.7 g/dl (31.0-35.0); Mean Corpuscular Hemoglobin 28.4 pg (27.0-33.0); Mean Corpuscular Volume 86.9 fL (80.0-98.0); Mean Platelet Volume 10.5 fL (9.4-12.3); Monocytes Absolute Auto 0.4 X10*3/uL (0.1-1.2); Neutrophils Percent Auto 61.1 % (45-73); Platelet Count 210 X10*3/uL (160-400); Red Blood Count 4.36 X10*6/uL (4.20-5.50); Red Cell Distribution Width 14.3 % (11.0-16.0)
[2024-11-30 13:05] LABS: Alanine Aminotransferase 11 U/L (0-31); Albumin Level 4.5 g/dL (3.5-5.0); Alkaline Phosphatase 55 U/L (39-117); Anion Gap 11 (12-20); Aspartate Amino Transferase 17 U/L (5-31); Bilirubin Total 0.6 mg/dL (0.0-1.0); Blood Urea Nitrogen 9 mg/dL (9-16); Calcium 9.6 mg/dL (8.4-10.2); Carbon Dioxide 26 mmol/L (22-29); Chloride 109 mmol/L (96-108); Cholesterol 240 mg/dL (<200); Estimated Glomerular Filt Rate > 60; Glucose Fasting 89 mg/dL (60-99); HDL Cholesterol 47 mg/dL (>40); LDL Cholesterol Calculated 181 mg/dL (<100); Sodium 142 mmol/L (135-145); Total Protein 7.2 g/dL (6.5-8.0); Triglycerides 64 mg/dL (<150)
[2024-11-30 13:19] LABS: TSH reflex Free T4 0.81 uIU/mL (0.32-4.0); Vitamin D 25-OH Total 21.7 ng/mL (>30)
[2024-11-30 13:53] LABS: Appearance Urine Clear; Color Urine Yellow; Glucose Urine UA Negative (Negative); Leukocyte Esterase Urine Negative (Negative); Nitrite Urine Negative (Negative); PH 5.5 (5.0-9.0); Specific Gravity - Urine 1.025 (1.005-1.025); Urine Blood Negative (Negative); Urine Ketones Trace mg/dL (Negative); Urine Protein Negative (Neg-Trace)
== END 2024-11-30 12:16 | disposition home or self-care (01) ==
LOC: HO.LAB 12:15
DX: Z00.00 Encounter for general adult medical examination without abnormal findings (principal)
CPT/HCPCS: 36415; 80053; 80061; 81003; 82306; 84443; 85025